=== PATIENT | female | born 1960 | race Caucasian/White ===

== ENCOUNTER 2024-07-08 12:42 | Outpatient (CLI) | payer OTHER, SELFPAY ==
--- NOTE | 2024-07-08 14:16 | P.ANES_ITS ---
Anesthesia Charges Start Date/Time Anesthesia Start Date: 07/08/24 Anesthesia Start Time: 13:48 Stop Date/Time Anesthesia Stop Date: 07/08/24 Anesthesia Stop Time: 14:15 Coding CPT Codes CPT Codes: MAIK LWR INTST SCR COLSC - [id number] ([id number]) P1 - NORMAL HEALTHY PATIENT, QK - ENVIRONMENTAL OFFICER 2-4 CNCRNT ANES PROC, QX - ARTIFICIAL TEETH INSPECTOR SVC W/ MED DIRECTION
--- NOTE | 2024-07-08 14:16 | P.ANES_ITS ---
Anesthesia Charges Start Date/Time Anesthesia Start Date: 07/08/24 Anesthesia Start Time: 13:48 Stop Date/Time Anesthesia Stop Date: 07/08/24 Anesthesia Stop Time: 14:15 Coding CPT Codes CPT Codes: MAIK LWR INTST SCR COLSC - [id number] ([id number]) P1 - NORMAL HEALTHY PATIENT, QX - COMPUTATIONAL BIOLOGIST SVYumiko W/ MED DIRECTION, QK - MILIEU THERAPIST 2-4 CNCRNT ANECarol PROC
--- NOTE | 2024-07-08 14:16 | W.ANESCHARGE ---
Anesthesia Charges Start Date/Time Anesthesia Start Date: 07/08/24 Anesthesia Start Time: 13:48 Stop Date/Time Anesthesia Stop Date: 07/08/24 Anesthesia Stop Time: 14:15 Coding CPT Codes CPT Codes: MAIK LWR INTST SCR COLSC - [id number] ([id number]) P1 - NORMAL HEALTHY PATIENT, QX - MERCHANDISE FLOW ASSOCIATE SVYumiko W/ MED DIRECTION, QK - WIRE DRAWING MACHINE TENDER 2-4 CNCRNT ANECarol PROC
--- NOTE | 2024-07-08 14:16 | W.ANESCHARGE ---
Anesthesia Charges Start Date/Time Anesthesia Start Date: 07/08/24 Anesthesia Start Time: 13:48 Stop Date/Time Anesthesia Stop Date: 07/08/24 Anesthesia Stop Time: 14:15 Coding CPT Codes CPT Codes: MAIK LWR INTST SCR COLSC - [id number] ([id number]) P1 - NORMAL HEALTHY PATIENT, QK - HOUSETRAILER SERVICER 2-4 CNCRNT ANES PROC, QX - FINANCIAL SYSTEMS ANALYST SVC W/ MED DIRECTION
== END 2024-07-08 12:43 | disposition home or self-care (01) ==
LOC: OP CLINIC 12:45
PROVIDERS: PCP Family Medicine; Visit Provider Internal Medicine Gastroenterology
DX: Z12.11 Encounter for screening for malignant neoplasm of colon (principal); Z86.0101 Personal history of adenomatous and serrated colon polyps; Z98.890 Other specified postprocedural states
CPT/HCPCS: 00812; 45378; J2704